=== PATIENT | male | born 1995 | race Two or more races ===

== ENCOUNTER 2019-01-09 18:01 | Emergency (ER) | payer SELFPAY ==
[~2019-01-09] VITALS: Ht 162.6 cm; Wt 81.2 kg
[2019-01-09 18:38] VITALS: BP 122/76
[2019-01-09] MEDS ORDERED: HYDROcodone-ACET 5/325MG TAB PO ONE (19:45)
== END 2019-01-09 19:37 | disposition home or self-care (01) ==
LOC: ER 18:01
DX: S42.021A Displaced fracture of shaft of right clavicle, initial encounter for closed fracture (principal); X58.XXXA Exposure to other specified factors, initial encounter; Y93.89 Activity, other specified; Y99.8 Other external cause status; Y92.89 Other specified places as the place of occurrence of the external cause
CPT/HCPCS: 73000; 73030